=== PATIENT | male | born 1980 | race Caucasian/White ===

== ENCOUNTER 2018-02-24 17:03 | Emergency (ER) | payer SELFPAY ==
[2018-02-24 17:11] VITALS: BP 153/113; PULSE 81; RESP 16; TEMP 36.8; O2SAT 97
[2018-02-24] MEDS: Balanced Salt Solution 15 ML BTL (17:26)
[2018-02-24] MEDS: Erythromycin Ophth Oint 3.5 GM TUBE (17:27)
[2018-02-24] MEDS: Tetracaine 0.5% 4 ML BTL (17:28)
--- NOTE | 2018-02-24 17:58 | W.ED.GENAD ---
Discharge Plan Discharge Details Chief Complaint: EyeProblem Clinical Impression: Foreign body in eye Reason For Visit: UNKNOWN Primary Care Provider: Clifford García ED Midlevel Provider: Taiwo Gomez ED Provider: Bolivar Acosta Disposition Patient Disposition: HOME Condition: Good Home Meds and New Rx's Prescriptions: Discontinued [id number]-vxobotfbt-Mm-mag-sim 119 ML mouthwash 10 ml Mucous Membrane Q6H PRN PRN4 Days Qty: 1 RF: 0 No Action No Known Home Meds RF: 0 Discharge Instructions Instructions: Eye Foreign Body (ED) Additional Instructions: You may continue to take jcuu-bun-phbdvsm acetaminophen or Motrin as needed for pain control. Return immediately to the emergency department for any new or significant worsening of symptoms including vision loss, severe change in pain, any further concerns. Use the provided ointment 4 times daily for the next 5 days and you should follow-up with [facility] on Monday for follow-up appointment. Inform them that you had foreign body seen on your exam and require a reassessment. Referrals: [facility] [Outside] - 02/27/18 12:00 am (Call the office first thing Monday for arrangement of follow-up appointment) Print Language: Thai Medical Decision Making MDM Narrative Medical decision making narrative: Patient presenting to the emergency department chief complaint of right eye foreign body. He states he was working on his vehicle when a part of his vehicle broke apart. This sprayed dirt, grease, or metal shavings over the patient. Patient states that he was wearing safety glasses and felt the material sprinkle down his forehead and into his right eye. Patient states mild blurry vision but no visual loss and states mild discomfort. Slit-lamp examination was performed and shows diet uptake above the cornea and very small scant foreign bodies. Please see procedure note for foreign body removal. Q-tip was utilized to remove all visible foreign bodies and after thorough irrigation with saline there was no more foreign body seen. Patient placed upon erythromycin ointment to use 4 times daily for the next 5 days and patient encouraged to follow-up with [facility] on first business day which is Monday. Patient encouraged to return immediately for any new or worsening symptoms. After discussion of diagnosis and plan of care with patient patient agreed and stated no further needs, questions, or concerns at this time. HPI - General Adult General Mode of arrival: ambulatory. Date/Time Provider Initiated Documentation: 02/24/18 17:10. Limitations to Documentation: no limitations. Information obtained by: patient. History of Present Illness 37 year old M presents to the emergency department with the chief complaint of Right eye foreign body, described as mild, with intensity rated at 4. Quality is described as aching and sharp, and is localized to the eyes and right. Patient reports no radiation. Patient started experiencing this minute(s) (90) and it has been constant. No relieving factors improve symptom(s), No exacerbating factors reported . Patient notes no other symptoms.. Patient did receive the following treatments prior to arrival, none Related Data Home Medications Medication Instructions Recorded Confirmed Unknown [No Known Home Meds] 02/24/18 02/24/18 Allergies Allergy/AdvReac Type Severity Reaction Status Date / Time No Known Allergies Allergy Unverified 02/24/18 18:15 General Stated Complaint: EyeProblem TERESA: 3 Review of Systems Review of Systems All systems reviewed & are unremarkable except as noted in HPI and below Eyes Patient Reports as per HPI and Reports blurry vision [facility] Social History Smoking/Tobacco Use Status: Current every day Exam Const General: cooperative, healthy appearing, comfortable, no acute distress and not in acute distress Nutritional Appearance: overweight Orientation: alert, awake, oriented x3 and not confused Limitations: mental status not altered HENMT Head: normal to inspection Face and sinus: normal facial exam Eyes Alignment and Position: alignment normal Periorbital: periorbital findings normal Eyelids: eyelids normal Pupils: PERRL, normal by confrontation and accommodation normal EOM: EOM intact bilaterally Direct ophthalmoscopy: normal light reflex and anterior chamber normal Other: Slit-lamp examination shows Flu-lindsey stain uptake above the cornea and small black foreign bodies directly above the iris. There is also small amount of dye uptake on the lateral sclera in the approximate 8 o'clock position Resp Effort & Inspection: normal respiratory effort and able to speak in complete sentences Neuro General: alert, awake and oriented x3 Psych Appearance: grossly normal Mental Status: mental status grossly normal Speech and Movement: speech and movement normal Course Vital Signs Temperature 36.8 C 02/24/18 17:11 Pulse 81 02/24/18 17:11 Respiratory Rate 16 09/01/18 17:11 Blood Pressure 153/113 H 02/24/18 17:11 Pulse Oximetry 97 02/24/18 17:11 Temperature 36.8 C 02/24/18 17:11 Pulse 81 02/24/18 17:11 Respiratory Rate 16 02/24/18 17:11 Blood Pressure 153/113 H 02/24/18 17:11 Pulse Oximetry 97 02/24/18 17:11 Procedures FB Removal Eye Location: eye (R) Topical anesthetic used: tetracaine Foreign body: other (very small black objects metal vs dirt) Evidence of corneal penetration: No Technique: irrigation and cotton tip swab Procedure performed under: slit-lamp Post-procedure medication: ophthalmic antibiotic Patient tolerated procedure: well and no complications
[2018-02-24 17:59] VITALS: BP 137/79; PULSE 78; RESP 16; TEMP 37; O2SAT 94
--- NOTE | 2018-02-24 18:11 | ED.GENADUL_ITS ---
Discharge Plan Discharge Details Chief Complaint: EyeProblem Clinical Impression: Foreign body in eye Reason For Visit: UNKNOWN Primary Care Provider: Clifford García ED Midlevel Provider: Taiwo Gomez ED Provider: Bolivar Acosta Disposition Patient Disposition: HOME Condition: Good Home Meds and New Rx's Prescriptions: Discontinued wrsktozlv-uxosejkgh-Tl-mag-sim 119 ML mouthwash 10 ml Mucous Membrane Q6H PRN PRN4 Days Qty: 1 RF: 0 No Action No Known Home Meds RF: 0 Discharge Instructions Instructions: Eye Foreign Body (ED) Additional Instructions: You may continue to take hwcs-lkm-xwgliip acetaminophen or Motrin as needed for pain control. Return immediately to the emergency department for any new or significant worsening of symptoms including vision loss, severe change in pain, any further concerns. Use the provided ointment 4 times daily for the next 5 days and you should follow-up with [facility] on Monday for follow-up appointment. Inform them that you had foreign body seen on your exam and require a reassessment. Referrals: [facility] [Outside] - 02/27/18 12:00 am (Call the office first thing Monday for arrangement of follow-up appointment) Print Language: Welsh Medical Decision Making MDM Narrative Medical decision making narrative: Patient presenting to the emergency department chief complaint of right eye foreign body. He states he was working on his vehicle when a part of his vehicle broke apart. This sprayed dirt, grease, or metal shavings over the patient. Patient states that he was wearing safety glasses and felt the material sprinkle down his forehead and into his right eye. Patient states mild blurry vision but no visual loss and states mild discomfort. Slit-lamp examination was performed and shows diet uptake above the cornea and very small scant foreign bodies. Please see procedure note for foreign body removal. Q-tip was utilized to remove all visible foreign bodies and after thorough irrigation with saline there was no more foreign body seen. Patient placed upon erythromycin ointment to use 4 times daily for the next 5 days and patient encouraged to follow-up with [facility] on first business day which is Monday. Patient encouraged to return immediately for any new or worsening symptoms. After discussion of diagnosis and plan of care with patient patient agreed and stated no further needs, questions, or concerns at this time. HPI - General Adult General Mode of arrival: ambulatory . Date/Time Provider Initiated Documentation: 02/24/18 17:10 . Limitations to Documentation: no limitations . Information obtained by: patient . History of Present Illness 37 year old M presents to the emergency department with the chief complaint of Right eye foreign body, described as mild, with intensity rated at 4. Quality is described as aching and sharp, and is localized to the eyes and right. Patient reports no radiation. Patient started experiencing this minute(s) (90) and it has been constant. No relieving factors improve symptom(s), No exacerbating factors reported . Patient notes no other symptoms.. Patient did receive the following treatments prior to arrival, none Related Data Home Medications Medication Instructions Recorded Confirmed Unknown [No Known Home Meds] 02/24/18 02/24/18 Allergies Allergy/AdvReac Type Severity Reaction Status Date / Time No Known Allergies Allergy Unverified 02/24/18 18:15 General Stated Complaint: EyeProblem TERESA: 3 Review of Systems Review of Systems All systems reviewed & are unremarkable except as noted in HPI and below Eyes Patient Reports as per HPI and Reports blurry vision [facility] Social History Smoking/Tobacco Use Status: Current every day Exam Const General: cooperative, healthy appearing, comfortable, no acute distress and not in acute distress Nutritional Appearance: overweight Orientation: alert, awake, oriented x3 and not confused Limitations: mental status not altered HENMT Head: normal to inspection Face and sinus: normal facial exam Eyes Alignment and Position: alignment normal Periorbital: periorbital findings normal Eyelids: eyelids normal Pupils: PERRL, normal by confrontation and accommodation normal EOM: EOM intact bilaterally Direct ophthalmoscopy: normal light reflex and anterior chamber normal Other: Slit-lamp examination shows Flu-lindsey stain uptake above the cornea and small black foreign bodies directly above the iris. There is also small amount of dye uptake on the lateral sclera in the approximate 8 o'clock position Resp Effort & Inspection: normal respiratory effort and able to speak in complete sentences Neuro General: alert, awake and oriented x3 Psych Appearance: grossly normal Mental Status: mental status grossly normal Speech and Movement: speech and movement normal Course Vital Signs Temperature 36.8 C 02/24/18 17:11 Pulse 81 02/24/18 17:11 Respiratory Rate 16 09/01/18 17:11 Blood Pressure 153/113 H 02/24/18 17:11 Pulse Oximetry 97 02/24/18 17:11 Temperature 36.8 C 02/24/18 17:11 Pulse 81 02/24/18 17:11 Respiratory Rate 16 02/24/18 17:11 Blood Pressure 153/113 H 02/24/18 17:11 Pulse Oximetry 97 02/24/18 17:11 Procedures FB Removal Eye Location: eye (R) Topical anesthetic used: tetracaine Foreign body: other (very small black objects metal vs dirt) Evidence of corneal penetration: No Technique: irrigation and cotton tip swab Procedure performed under: slit-lamp Post-procedure medication: ophthalmic antibiotic Patient tolerated procedure: well and no complications
[2018-02-24 18:22] VITALS: BP 137/79; PULSE 78; RESP 16; TEMP 37; O2SAT 94
--- NOTE | 2018-02-25 09:13 | PDOC.ERCMPRO ---
Care Management Progress Note 02/25-Ben HOLLOWAY requested assistance with a [facility] eye care appt for Monday, 02/27 for foreign body in right eye. Referral, demographics, and provider note faxed to [facility] today.
--- NOTE | 2018-02-25 09:14 | CMPROGNOTE_ITS ---
Care Management Progress Note 02/25-Ben HOLLOWAY requested assistance with a [facility] eye care appt for Monday , 02/27 for foreign body in right eye. Referral, demographics, and provider note faxed to [facility] today.
== END 2018-02-24 18:22 | disposition home or self-care (01) ==
PROVIDERS: Emergency Provider Emergency Medicine; PCP General Practice
DX: T15.01XA Foreign body in cornea, right eye, initial encounter (principal); X58.XXXA Exposure to other specified factors, initial encounter
CPT/HCPCS: 65222; 90471

== ENCOUNTER 2018-12-01 20:57 | Emergency (ER) | payer OTHER, SELFPAY ==
[2018-12-01 21:03] VITALS: BP 148/69; PULSE 82; RESP 18; TEMP 36.4; O2SAT 96
--- NOTE | 2018-12-01 21:10 | ED.GENADUL_ITS ---
Discharge Plan Disposition Patient Disposition: HOME Discharge Details Chief Complaint: GenMedical Clinical Impression: Fish hook injury of finger of left hand Primary Care Provider: Clifford García ED Provider: Isaias Locke Home Meds and New Rx's Prescriptions: New cephalexin [Keflex] 500 mg capsule 500 mg PO QID 4 Days Qty: 16 RF: 0 cephalexin [Keflex] 500 mg capsule 500 mg PO QID 4 Days Qty: 16 RF: 0 Discharge Instructions Instructions: Soft Tissue Foreign Body (ED) Additional Instructions: Return to the ED if you develop pain, redness streaking up your finger, discharge, chills, fever Discharge Data Discharge Physician: Isaias Locke Medical Decision Making 2 mL lidocaine without epinephrine was injected to the fourth webspace left hand. Patient tolerated well. 5 prescription utilized to secure base of hook and drive ethan out through skin. Cable cutter used to clip off barbed and then hook easily retracted. Foreign body removed, dressing applied. HPI Patient presents for removal of fishhook left fifth finger. No additional injuries. Attempted to remove at home but was unsuccessful. No numbness, weakness, redness General Date/Time Provider Initiated Documentation: 12/01/18 21:10 . Related Data Home Medications Medication Instructions Recorded Confirmed cephalexin [Keflex] 500 mg PO QID 4 Days #16 cap 12/01/18 cephalexin [Keflex] 500 mg PO QID 4 Days #16 cap 12/01/18 Previous Rx's Medication Instructions Recorded cephalexin [Keflex] 500 mg PO QID 4 Days #16 cap 12/01/18 cephalexin [Keflex] 500 mg PO QID 4 Days #16 cap 12/01/18 Allergies Allergy/AdvReac Type Severity Reaction Status Date / Time No Known Allergies Allergy Unverified 02/24/18 18:15 General Stated Complaint: GenMedical TERESA: 4 Review of Systems Constitutional Denies chills, Denies fatigue, Denies fever(s) and Denies lethargy Eyes Denies loss of vision ENT Denies nasal congestion and Denies sore throat Cardiovascular Denies chest pain and Denies dyspnea Respiratory Denies cough and Denies dyspnea Gastrointestinal Denies abdominal pain, Denies nausea and Denies vomiting Musculoskeletal Denies back pain, Denies muscle weakness and Denies numbness Integumentary/Breasts Denies rash Neurologic Denies focal weakness, Denies loss of vision and Denies numbness Endocrine Denies fatigue Hematologic/Lymphatic Denies easy bruising PFSH Social History Smoking/Tobacco Use Status: Current every day Alcohol Intake: never Drug use: Never Do you feel safe at home: Yes Do you feel safe in your relationship?: Yes Exam Const General: cooperative and comfortable HENMT Mouth: moist mucous membranes Eyes Conjunctivae: conjunctivae normal Sclera: sclerae normal Neck Neck: trachea midline Resp Effort & Inspection: normal respiratory effort and able to speak in complete sentences Skin General skin exam: no rashes or lesions noted Other: Left fifth finger is with fishhook embedded in the palmar aspect of proximal site is clean with no debris, no erythema Neuro General: alert, awake, tone normal and moves all extremities Course Vital Signs Temperature 36.4 C L 12/01/18 21:03 Pulse 82 12/01/18 21:03 Respiratory Rate 18 12/01/18 21:03 Blood Pressure 148/69 H 12/01/18 21:03 Pulse Oximetry 96 12/01/18 21:03 Temperature 36.4 C L 12/01/18 21:03 Temperature Source Temporal Artery Scan 12/01/18 21:03 Pulse 82 12/01/18 21:03 Respiratory Rate 18 12/01/18 21:03 Respiratory Effort 12/01/18 21:06 Blood Pressure 148/69 H 12/01/18 21:03 Pulse Oximetry 96 12/01/18 21:03 Oxygen Delivery Method Room Air 12/01/18 21:03 Oxygen Flow Rate 0 12/01/18 21:03
[2018-12-01] MEDS: Cephalexin 500 MG CAP PO (21:34)
== END 2018-12-01 21:47 | disposition home or self-care (01) ==
PROVIDERS: Emergency Provider Physician Assistant Medical; PCP General Practice
DX: S60.457A Superficial foreign body of left little finger, initial encounter (principal); W45.8XXA Other foreign body or object entering through skin, initial encounter
CPT/HCPCS: 99283

== ENCOUNTER 2022-03-20 12:08 | Emergency (ER) | payer SELFPAY ==
[2022-03-20 12:11] VITALS: BP 171/99; PULSE 79; RESP 18; TEMP 36.8; O2SAT 97
--- NOTE | 2022-03-20 12:15 | DI.RAD_ITS ---
Exam(s) XR ANKLE RT COMPLETE XR FOOT RT COMPLETE EXAM: XR ANKLE RT COMPLETE CLINICAL HISTORY: twisted ankle, r/o fx TECHNIQUE: COMPARISON: CR XR FOOT RT COMPLETE from 03/20/2022 FINDINGS: Four views of the ankle and three views of the foot were obtained. The ankle mortise is well maintai johnathan. There is no evidence of acute fracture or dislocation involving the bones of the foot or ankle. IMPRESSION: RADIATION DOSE DELIVERED: Total DLP
--- NOTE | 2022-03-20 12:33 | W.ED.GENAD ---
Discharge Plan Disposition Patient Disposition: HOME Condition: Stable Discharge Details Chief Complaint: Orthopedic Clinical Impression: Right ankle sprain Primary Care Provider: Clifford García ED Provider: Sierra Taylor Home Meds and New Rx's Prescriptions: No Action ibuprofen 800 mg Tablet 800 mg PO Q6H PRN Discharge Instructions Instructions: Ankle Sprain (ED) Additional Instructions: Rest, ice, and elevate the affected area as much as possible. Alternate tylenol and motrin as needed and directed for pain. Use the crutches to help with ambulation as needed. You can follow-up with your primary care doctor for reevaluation and for referral to orthopedics if needed. Return immediately to the emergency department if you develop any worsening or new concerning symptoms. Stand Alone Forms: Work Release Referrals: Joseph Messina MD [ [facility] STAFF PHYSICIAN] - Discharge Data Discharge Physician: Sierra Taylor Medical Decision Making 41-year-old male presents with right ankle and foot pain after he twisted his ankle when he fell 6 feet down off a platform yesterday afternoon. He has mild edema and tenderness of his right medial and lateral malleolus and right heel. He is neurovascularly intact and there is no evidence of deformity. Will refer for x-rays. X-rays reviewed and negative for acute fracture or dislocation. Ankle stirrup splint placed. Patient requesting crutches and work note. Advised on importance of rest ice and elevation. Given orthopedic follow-up information if needed. Usual and customary return precautions given prior to discharge. Medical Records Medical records reviewed: Yes I reviewed the patient's medical records. Imaging Data Radiologic Study: Radiologist's impression: XR ANKLE RT COMPLETE XR FOOT RT COMPLETE EXAM:? XR ANKLE RT COMPLETE CLINICAL HISTORY:? twisted ankle, r/o fx TECHNIQUE:? COMPARISON:? CR XR FOOT RT COMPLETE from 03/20/2022 FINDINGS: Four views of the ankle and three views of the foot were obtained.? The ankle mortise is well maintained.? There is no evidence of acute fracture or dislocation involving the bones of the foot or ankle. HPI General Mode of arrival: ambulatory. Date/Time Provider Initiated Documentation: 03/20/22 12:09. Limitations to Documentation: no limitations. Information obtained by: patient. HPI Narrative: Patient is a 41-year-old male presents with right ankle and foot pain after twisting his ankle when standing on a platform yesterday which fell down approximately 6 feet and he twisted his right ankle. He has having pain in his right medial and lateral ankle as well as his right heel. He denies any pain in his proximal leg, knee or hip. He took 800 mg of ibuprofen 1 hour prior to arrival. Related Data Home Medications Medication Instructions Recorded Confirmed ibuprofen 800 mg tablet 800 mg PO Q6H PRN 03/20/22 03/20/22 Allergies Allergy/AdvReac Type Severity Reaction Status Date / Time No Known Allergies Allergy Unverified 03/20/22 12:18 General Stated Complaint: Orthopedic TERESA: 4 Review of Systems All systems reviewed & are unremarkable except as noted in HPI and below Constitutional Constitutional: Reports as per HPI, Denies chills and Denies fever(s) Eyes Eyes: Denies blurry vision ENT Ears, Nose, Mouth, and Throat: Denies dizziness, Denies sore throat and Denies throat swelling Cardiovascular Cardiovascular: Denies chest pain and Denies dyspnea Respiratory Respiratory: Denies cough and Denies dyspnea Gastrointestinal Gastrointestinal: Denies abdominal pain, Denies diarrhea and Denies vomiting Genitourinary Genitourinary: Denies hematuria and Denies dysuria Musculoskeletal Musculoskeletal: Denies back pain and Denies numbness Integumentary/Breasts Skin/Breast: Denies lesions and Denies rash Neurologic Neurologic: Denies dizziness, Denies localized weakness and Denies numbness Allergic/Immunologic Allergic/Immunologic: Denies throat swelling PFSH All Active Problems (Updated 03/20/22 @ 13:16 by Sierra Taylor DO) Right ankle sprain (Acute) Medical History (Updated 03/20/22 @ 13:16 by Sierra Taylor DO) No significant past medical history Surgical History (Updated 03/20/22 @ 12:41 by Sierra Taylor DO) History of back surgery History of hernia repair History of knee surgery History of testicular surgery Social History Smoking/Tobacco Use Status: Former Tobacco Use Smoking risk assessment performed?: Yes Alcohol Intake: never Drug use: Never Substance use type: does not use Do you feel safe at home: Yes Do you feel safe in your relationship?: Yes Exam Const General: cooperative and no acute distress Orientation: alert, awake and oriented x3 HENMT Head: normal to inspection Mouth: oral mucosae normal Eyes General: appearance normal, both eyes and all related structures Neck Neck: normal visual inspection Resp Effort & Inspection: normal respiratory effort and able to speak in complete sentences Cardio Rate: regular rate Skin General skin exam: no rashes or lesions noted Neuro General: patient alert, patient awake and patient oriented x3 Motor: muscle tone normal throughout Extrem Ankle/foot/toe images: 1. Mild edema and tenderness to palpation of anterior and inferior aspect of lateral malleolus. 2. Mild edema and tenderness to palpation of anterior aspect of medial malleolus. Other: Some tenderness to palpation of the right heel but there is no evidence of trauma. No tenderness to palpation of right fifth metatarsal. There is no deformity of the right ankle or foot. Right DP/PT pulses intact. Psych Appearance: grossly normal Affect: normal affect Course Vital Signs Vital signs: Vital Signs Temperature 98.2 F 03/20/22 12:11 Pulse 79 03/20/22 12:11 Respiratory Rate 18 03/20/22 12:11 Blood Pressure 171/99 H 03/20/22 12:11 Pulse Oximetry 97 03/20/22 12:11 Temperature 98.2 F 03/20/22 12:11 Temperature Source Temporal Artery Scan 03/20/22 12:11 Pulse 79 03/20/22 12:11 Respiratory Rate 18 03/20/22 12:11 Respiratory Effort Non-Labored 03/20/22 12:16 Blood Pressure 171/99 H 03/20/22 12:11 Blood Pressure Position Sitting 03/20/22 12:11 Pulse Oximetry 97 03/20/22 12:11 Oxygen Delivery Method Room Air 03/20/22 12:11 Oxygen Flow Rate 0 03/20/22 12:11 Pain Level 7 03/20/22 12:11
== END 2022-03-20 13:56 | disposition home or self-care (01) ==
PROVIDERS: Emergency Provider Physician Assistant; PCP General Practice
DX: S93.401A Sprain of unspecified ligament of right ankle, initial encounter (principal); Z87.891 Personal history of nicotine dependence; W17.89XA Other fall from one level to another, initial encounter; X50.1XXA Overexertion from prolonged static or awkward postures, initial encounter
CPT/HCPCS: 29515; 99283; 73610; 73630; 99282